=== PATIENT | female | born 1995 | race Caucasian/White ===

== ENCOUNTER → 2018-08-18 | Outpatient (CLI) | payer OTHER ==
--- NOTE | 2018-08-18 15:24 | US ---
EXAMINATION TYPE: Transabdominal DATE OF EXAM: 11/16/17 COMPARISON: NONE CLINICAL HISTORY: Z36 Confirm dates. CRAMPING IN EARLY OB EXAM PERFORMED: OBTA EXAM MEASUREMENTS: GESTATIONAL AGE / DATING Physician Established: Not yet established Dates by LMP: (8 weeks/0 days) EDC: 03/30/2019 Dates by First Scan: No previous this is first scan Dates by Current Scan for: (8 weeks/0 days) EDC: 03/30/2019 MATERNAL ANATOMY Uterus: 8.9 x 7.2 x 5.5cm Right Ovary: 2.6 x 1.4 x 1.9cm Left Ovary: 2.3 x 1.3 x 1.5cm Post CDS / Adnexa: wnl Presence of free fluid: no Presence of corpus luteal cyst: not seen Presence of subchorionic bleed: no GESTATION / SURVEY CRL: 1.6cm (8 weeks/0 days) MSD: wnl Yolk Sac (normal less than 6mm): 0.3 Heart Rate: 158 bpm Rhythm: Normal IUP: Live IUP Date of LMP: 06/23/2019 IMPRESSION: Single live intrauterine with a sonographic age of 8 weeks and 0 days, concordant with mens trual age. No complicating process is seen on today's examination.
[2018-08-18 16:20] LABS: Glucose 82 mg/dL (74-99)
[2018-08-18 16:23] LABS: HCT 38.5 % (34.0-46.0); HGB 12.7 gm/dL (11.4-16.0); MCH 29.9 pg (25.0-35.0); MCHC 33.1 g/dL (31.0-37.0); MCV 90.4 fL (80.0-100.0); Mean Platelet Volume 6.2; Platelet Count 345 k/uL (150-450); RBC 4.26 m/uL (3.80-5.40); RDW 12.8 % (11.5-15.5); WBC 14.5 k/uL (3.8-10.6)
[2018-08-19 05:00] LABS: HIV 1 AB Non-Reactive (Non-Reactive); HIV AB P24 Non-Reactive (Non-Reactive); HIV P24 AG Non-Reactive (Non-Reactive)
[2018-08-19 10:10] LABS: Toxoplasma Antibody (IgG) <3.0 IU/mL (<7.2); Toxoplasma Antibody (IgM) <3.0 AU/mL (<8.0)
== END ==
LOC: RADUSWWP 14:40
PROVIDERS: ATTEND Obstetrics & Gynecology
DX: Z36.89 Encounter for other specified antenatal screening (principal); Z34.81 Encounter for supervision of other normal pregnancy, first trimester; Z3A.08 8 weeks gestation of pregnancy
CPT/HCPCS: 36415; 76801; 82565; 82947; 85027; 86762; 86777; 86778; 86780; 86850; 86900; 86901; 87340; 87390

== ENCOUNTER 2018-09-13 09:44 | Emergency (ER) | payer OTHER ==
[2018-09-13 09:52] VITALS: RESP 18; TEMP 98.2
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
[2018-09-13 12:22] VITALS: BP 112/78; PULSE 97
[2018-09-14 14:30] LABS: C. trachomatis,PCR Negative (Neg,Equiv); Chlamydia trachomatis Source Vagina
[2018-09-14 14:35] LABS: N. gonorrhoeae,PCR Negative (Neg,Equiv); Neisseria Source Vagina
== END 2018-09-13 12:22 | disposition home or self-care (01) ==
LOC: EC 09:44
DX: O99.89 Other specified diseases and conditions complicating pregnancy, childbirth and the puerperium (principal); R10.9 Unspecified abdominal pain; O99.331 Smoking (tobacco) complicating pregnancy, first trimester; F17.200 Nicotine dependence, unspecified, uncomplicated; Z3A.11 11 weeks gestation of pregnancy; Z88.0 Allergy status to penicillin; Z91.040 Latex allergy status; W50.0XXA Accidental hit or strike by another person, initial encounter
CPT/HCPCS: 76801; 76813; 87070; 87205; 87491; 87591; 87808; 99284

== ENCOUNTER 2018-09-22 04:42 | Emergency (ER) | payer OTHER ==
[2018-09-22] MEDS ORDERED: SODIUM CHLORIDE 0.9% 1,000 ML IV STA (04:54)
[2018-09-22] MEDS ORDERED: Rhogam IMMUNE GLOBULIN 1,500 UNIT/1 ML IM ONE (05:11)
[2018-09-22 05:43] LABS: Basophils % (A) 0 %; Eosinophils # (A) 0.1 k/uL (0-0.7); Eosinophils % (A) 0 %; HCT 35.7 % (34.0-46.0); HGB 12.2 gm/dL (11.4-16.0); Lymphocytes # (A) 1.9 k/uL (1.0-4.8); Lymphocytes % (A) 9 %; MCH 30.5 pg (25.0-35.0); MCV 89.7 fL (80.0-100.0); Mean Platelet Volume 5.7; Monocytes # (A) 0.8 k/uL (0-1.0); Monocytes % (A) 4 %; Neutrophils # (A) 17.7 k/uL (1.3-7.7); Neutrophils % (A) 86 %; Platelet Count 334 k/uL (150-450); RBC 3.99 m/uL (3.80-5.40); RDW 12.9 % (11.5-15.5); WBC 20.7 k/uL (3.8-10.6)
[2018-09-22 05:46] LABS: Appearance,Urine Cloudy (Clear); Bacteria,Urine Occasional /hpf; Bilirubin,Urine Negative (Negative); Blood,Urine Large (Negative); Color,Urine Yellow; Glucose,Urine (UA) Negative (Negative); Ketones,Urine Negative (Negative); Leukocyte Esterase,Urine Large (Negative); Mucus,Urine Many /hpf; Nitrite,Urine Negative (Negative); PH, Urine 6.5 (5.0-8.0); Protein,Urine 1+ (Negative); RBC,Urine 70 /hpf (0-5); Specific Gravity,Urine 1.021 (1.001-1.035); Squamous Epithelial Cell,Urine 10 /hpf (0-4); Urobilinogen,Urine <2.0 mg/dL (<2.0); WBC,Urine 70 /hpf (0-5)
[2018-09-22] MEDS ORDERED: NITROFURANTOIN MONOHYD/M-CRYST 100 MG CAP PO STA (05:59)
[2018-09-22 06:01] LABS: ALT 15 U/L (9-52); AST 19 U/L (14-36); Albumin 3.8 g/dL (3.5-5.0); Alkaline Phosphatase 47 U/L (38-126); Anion Gap 8 mmol/L; Blood Urea Nitrogen 9 mg/dL (7-17); Calcium 9.2 mg/dL (8.4-10.2); Carbon Dioxide 23 mmol/L (22-30); Chloride 108 mmol/L (98-107); Glucose 98 mg/dL (74-99); Potassium 3.9 mmol/L (3.5-5.1); Sodium 139 mmol/L (137-145); Total Bilirubin 0.8 mg/dL (0.2-1.3); Total Protein 6.4 g/dL (6.3-8.2)
--- NOTE | 2018-09-22 06:06 | ED ---
Abdominal Pain HPI - General Chief Complaint: Abdominal Pain Stated Complaint: abd pain, 12 weeks preg Time Seen by Provider: 09/22/18 04:50 Source: patient Mode of arrival: ambulatory Limitations: no limitations - History of Present Illness Initial Comments: Carline is a 22 yo female currently 12w6d with a single intrauterine confirmed at with US who presents to the ED today for evaluation of pelvic discomfort and vaginal bleeding. Patient had a fall last week and was evaluated in the ER at that time, she reports she had been doing well since then. She woke this morning with abdominal cramping, she thought she needed to have a BM so she went to the restroom. She was able to have a BM but noted she passed a blood clot and had blood upon wiping which prompted her to come to the ER for further evaluation. patient is scheduled to see Dr. Ramirez next week. Patient is noted to be trichomonas positive on 09/13 - Related Data Previous Rx's Medication Instructions Recorded Nitrofurantoin Monohyd/M-Cryst 100 mg PO Q12HR #10 cap 09/22/18 [Macrobid] Allergies Allergy/AdvReac Type Severity Reaction Status Date / Time latex Allergy Rash/Hives Verified 09/22/18 06:42 Penicillins Allergy Dyspnea Verified 09/22/18 06:42 Review of Systems ROS Statement: Those systems with pertinent positive or pertinent negative responses have been documented in the HPI. ROS Other: All systems not noted in ROS Statement are negative. Past Medical History Additional Past Medical History / Comment(s): Patient has a history of gastritis. History of Any Multi-Drug Resistant Organisms: None Reported Past Surgical History: No Surgical Hx Reported Past Anesthesia/Blood Transfusion Reactions: No Reported Reaction Past Psychological History: Depression Smoking Status: Current every day smoker Past Alcohol Use History: None Reported Past Drug Use History: None Reported General Exam Limitations: no limitations Course Vital Signs 09/22/18 09/22/18 04:44 09:20 Temperature 98.5 F 97.8 F Pulse Rate 115 H 89 Respiratory 20 18 Rate Blood Pressure 117/79 107/59 O2 Sat by Pulse 98 99 Oximetry Medical Decision Making - Medical Decision Making Patient was seen and evaluated history was obtained from patient 22-year-old female 12 weeks 5 days presenting with vaginal bleeding Bedside ultrasound reveals a viable fetus with a heart rate in the 160s Let of the pelvis Labs and imaging were ordered Labs reveal leukocytosis, urinalysis is concerning for urinary tract infection review of labs reveal patient was Trichomonas positive last week Patient care was discussed with Dr. Awad who states he does not treat Trichomonas in the first trimester, patient is scheduled to see Dr. Ramirez on Wednesday of next week at which time she will be greater than 13 weeks gestation and can be treated as well as her partner. This was discussed with the patient and the partner who are agreeable. Patient will be treated for her urinary tract infection and plan to follow up with OB outpatient. Patient ambulated independently the restroom and upon return return to the room she states that she passed a dime-sized blood clot is having cramping. I will order a formal ultrasound for evaluation. A sign patient care is signed out to Dr. Bui, at shift change patient is pending ultrasound. - Lab Data Result diagrams: 09/22/18 05:00 09/22/18 05:00 Lab Results 09/22/18 09/22/18 09/22/18 Range/Units 05:00 05:00 05:00 WBC 20.7 H (3.8-10.6) k/uL RBC 3.99 (3.80-5.40) m/uL Hgb 12.2 (11.4-16.0) gm/dL Hct 35.7 (34.0-46.0) % MCV 89.7 (80.0-100.0) fL MCH 30.5 (25.0-35.0) pg MCHC 34.0 (31.0-37.0) g/dL RDW 12.9 (11.5-15.5) % Plt Count 334 (150-450) k/uL Neutrophils % 86 % Lymphocytes % 9 % Monocytes % 4 % Eosinophils % 0 % Basophils % 0 % Neutrophils # 17.7 H (1.3-7.7) k/uL Lymphocytes # 1.9 (1.0-4.8) k/uL Monocytes # 0.8 (0-1.0) k/uL Eosinophils # 0.1 (0-0.7) k/uL Basophils # 0.0 (0-0.2) k/uL Sodium 139 (137-145) mmol/L Potassium 3.9 (3.5-5.1) mmol/L Chloride 108 H (98-107) mmol/L Carbon Dioxide 23 (22-30) mmol/L Anion Gap 8 mmol/L BUN 9 (7-17) mg/dL Creatinine 0.45 L (0.52-1.04) mg/dL Est GFR (CKD-EPI)AfAm >90 (>60 ml/min/1.73 sqM) Est GFR (CKD-EPI)NonAf >90 (>60 ml/min/1.73 sqM) Glucose 98 (74-99) mg/dL Calcium 9.2 (8.4-10.2) mg/dL Total Bilirubin 0.8 (0.2-1.3) mg/dL AST 19 (14-36) U/L ALT 15 (9-52) U/L Alkaline Phosphatase 47 (38-126) U/L Total Protein 6.4 (6.3-8.2) g/dL Albumin 3.8 (3.5-5.0) g/dL HCG, Quant 60712.7 mIU/mL Urine Color Urine Appearance (Clear) Urine pH (5.0-8.0) Ur Specific [place] (1.001-1.035) Urine Protein (Negative) Urine Glucose (UA) (Negative) Urine Ketones (Negative) Urine Blood (Negative) Urine Nitrite (Negative) Urine Bilirubin (Negative) Urine Urobilinogen (<2.0) mg/dL Ur Leukocyte Esterase (Negative) Urine RBC (0-5) /hpf Urine WBC (0-5) /hpf Ur Squamous Epith Cells (0-4) /hpf Urine Bacteria (None) /hpf Urine Mucus (None) /hpf Blood Type O Negative Blood Type Recheck No 09/22/18 Range/Units 05:00 WBC (3.8-10.6) k/uL RBC (3.80-5.40) m/uL Hgb (11.4-16.0) gm/dL Hct (34.0-46.0) % MCV (80.0-100.0) fL MCH (25.0-35.0) pg MCHC (31.0-37.0) g/dL RDW (11.5-15.5) % Plt Count (150-450) k/uL Neutrophils % % Lymphocytes % % Monocytes % % Eosinophils % % Basophils % % Neutrophils # (1.3-7.7) k/uL Lymphocytes # (1.0-4.8) k/uL Monocytes # (0-1.0) k/uL Eosinophils # (0-0.7) k/uL Basophils # (0-0.2) k/uL Sodium (137-145) mmol/L Potassium (3.5-5.1) mmol/L Chloride (98-107) mmol/L Carbon Dioxide (22-30) mmol/L Anion Gap mmol/L BUN (7-17) mg/dL Creatinine (0.52-1.04) mg/dL Est GFR (CKD-EPI)AfAm (>60 ml/min/1.73 sqM) Est GFR (CKD-EPI)NonAf (>60 ml/min/1.73 sqM) Glucose (74-99) mg/dL Calcium (8.4-10.2) mg/dL Total Bilirubin (0.2-1.3) mg/dL AST (14-36) U/L ALT (9-52) U/L Alkaline Phosphatase (38-126) U/L Total Protein (6.3-8.2) g/dL Albumin (3.5-5.0) g/dL HCG, Quant mIU/mL Urine Color Yellow Urine Appearance Cloudy H (Clear) Urine pH 6.5 (5.0-8.0) Ur Specific [place] 1.021 (1.001-1.035) Urine Protein 1+ H (Negative) Urine Glucose (UA) Negative (Negative) Urine Ketones Negative (Negative) Urine Blood Large H (Negative) Urine Nitrite Negative (Negative) Urine Bilirubin Negative (Negative) Urine Urobilinogen <2.0 (<2.0) mg/dL Ur Leukocyte Esterase Large H (Negative) Urine RBC 70 H (0-5) /hpf Urine WBC 70 H (0-5) /hpf Ur Squamous Epith Cells 10 H (0-4) /hpf Urine Bacteria Occasional H (None) /hpf Urine Mucus Many H (None) /hpf Blood Type Blood Type Recheck Disposition Clinical Impression: UTI (urinary tract infection) in in first trimester, infection, trichomonal, Vaginal bleeding before 22 weeks gestation Disposition: HOME SELF-CARE Condition: Stable Prescriptions: Nitrofurantoin Monohyd/M-Cryst [Macrobid] 100 mg PO Q12HR #10 cap Is patient prescribed a controlled substance at d/c from ED?: No Referrals: Angeli Poole MD [Primary Care Provider] - 1-2 days
[2018-09-22 06:43] LABS: HCG,Quantitative Serum 50883.7 mIU/mL
--- NOTE | 2018-09-22 07:27 | US ---
EXAMINATION TYPE: Transabdominal DATE OF EXAM: 11/16/17 COMPARISON: US 09/13/2018 CLINICAL HISTORY: vaginal bleeding. Spotting, cramping EXAM PERFORMED: Transabdominal (TA) EXAM MEASUREMENTS: GESTATIONAL AGE / DATING Physician Established: (13 weeks/0 days) EDC: 03/30/2019 Dates by LMP: (13 weeks/0 days) EDC: 03/30/2019 Dates by First Scan: 13 weeks/0 days) EDC: 03/30/2019 Dates by Current Scan for: 13 weeks/0 days) EDC: 03/30/2019 MATERNAL ANATOMY Uterus: 11.4 x 9.0 x 8.9 cm Right Ovary: 2.9 x 1.6 x 2.3 cm Left Ovary: 3.5 x 2.5 x 2.2 cm Post CDS / Adnexa: wnl Presence of free fluid: No Presence of corpus luteal cyst: No Presence of subchorionic bleed: No GESTATION / SURVEY CRL: 6.73 cm (13 weeks/0 days) Heart Rate: 165 bpm Rhythm: Normal IUP: Viable IUP Date of LMP: 06/23/2018 Beta HcG (if available): 50,883.7 IMPRESSION: Viable IUP, measurements consistent with dates.
[2018-09-22 09:21] VITALS: BP 107/59; PULSE 89; RESP 18; TEMP 97.8
--- NOTE | 2018-09-23 03:48 | CDI ---
Dear Norma Palomares DO: Please do addendum Physical Examination. Thank you, Juan Saleh, Ocularist. If you have any questions, please contact Application Integration Engineer at [phone]. [facility]
== END 2018-09-22 09:30 | disposition home or self-care (01) ==
LOC: EC 04:42
DX: O23.41 Unspecified infection of urinary tract in pregnancy, first trimester (principal); O98.311 Other infections with a predominantly sexual mode of transmission complicating pregnancy, first trimester; A59.9 Trichomoniasis, unspecified; O20.9 Hemorrhage in early pregnancy, unspecified; O99.111 Other diseases of the blood and blood-forming organs and certain disorders involving the immune mechanism complicating pregnancy, first trimester; D72.829 Elevated white blood cell count, unspecified; O99.331 Smoking (tobacco) complicating pregnancy, first trimester; F17.200 Nicotine dependence, unspecified, uncomplicated; Z88.0 Allergy status to penicillin; Z91.040 Latex allergy status; Z91.81 History of falling; Z53.8 Procedure and treatment not carried out for other reasons; Z3A.12 12 weeks gestation of pregnancy
CPT/HCPCS: 36415; 86900; 86901; 80053; 85025; 81001; 84702; 87086; 76801; 99284; 96372; J2791

== ENCOUNTER → 2018-11-02 | Outpatient (CLI) | payer OTHER | END | disposition home or self-care (01) | LOC: LABWHC1 14:33 | PROVIDERS: ATTEND Obstetrics & Gynecology | DX: O03.9 Complete or unspecified spontaneous abortion without complication (principal) | CPT/HCPCS: 36415; 84702 ==

== ENCOUNTER → 2020-03-18 | Outpatient (CLI) | payer OTHER ==
--- NOTE | 2020-03-18 17:32 | P.STRESS ---
- Stress Test Note Stress Test Results/Findings: Exam Performed: EH stress test Exam Date: 03/18/20 Reason for Exam: CHEST PRESSURE Height: 5 ft 2 in Weight: 43 kg Protocol: EXERCISE TOLERANCE TEST Stage: 5 Duration of Exercise: 12:30 Resting Heart Rate: 77 Resting Blood Pressure: 123/78 Maximum Achieved Heart Rate: 172 Maximum Achieved Blood Pressure: 136/70 85% PMHR: 167 100% PMHR: 196 METS: 12.9 Technologist Comment: Stress Test Results/Findings: Baseline heart rate 77 beats a minute, Baseline blood pressure 123/78 mmHg Baseline twelve-lead ECG shows sinus rhythm with normal cardiac intervals normal ST segment Patient exercised on a Ritchie protocol for 12 minutes 30 seconds during the peak heart rate of 154 beats a minute normal blood pressure response to excise there was no ECG ms for ischemia no arrhythmias are noted Baseline artifact noted at peak exercise but early in recovery there were no ECG abnormalities Impression Excellent exercise capacity Patient did complain of chest pressure during the procedure No ECG abnormalities noted at that time
--- NOTE | 2020-03-19 11:59 | EST ---
Stress Test Results/Findings: Exam Performed: stress test Exam Date: 03/18/20 Reason for Exam: CHEST PRESSURE Height: 5 ft 2 in Weight: 43 kg Protocol: EXERCISE TOLERANCE TEST Stage: 5 Duration of Exercise: 12:30 Resting Heart Rate: 77 Resting Blood Pressure: 123/78 Maximum Achieved Heart Rate: 172 Maximum Achieved Blood Pressure: 136/70 85% PMHR: 167 100% PMHR: 196 METS: 12.9 Technologist Comment: Stress Test Results/Findings: Baseline heart rate 77 beats a minute, Baseline blood pressure 123/78 mmHg Baseline twelve-lead ECG shows sinus rhythm with normal cardiac intervals normal ST segment Patient exercised on a Ritchie protocol for 12 minutes 30 seconds during the peak heart rate of 154 beats a minute normal blood pressure response to excise there was no ECG ms for ischemia no arrhythmias are noted Baseline artifact noted at peak exercise but early in recovery there were no ECG abnormalities Impression Excellent exercise capacity Patient did complain of chest pressure during the procedure No ECG abnormalities noted at that time HIEU
== END | disposition home or self-care (01) ==
LOC: RADNMMAIN 10:19
PROVIDERS: ATTEND Family Medicine
DX: R07.89 Other chest pain (principal); R06.89 Other abnormalities of breathing; Z88.0 Allergy status to penicillin
CPT/HCPCS: 93017

== ENCOUNTER 2020-09-14 16:46 | Emergency (ER) | payer OTHER ==
[2020-09-14 16:57] VITALS: BP 124/83; PULSE 107; RESP 16; TEMP 98.4
[2020-09-14 17:31] LABS: Basophils # (A) 0.1 k/uL (0-0.2); Basophils % (A) 1 %; Eosinophils # (A) 0.1 k/uL (0-0.7); Eosinophils % (A) 1 %; HCT 41.4 % (34.0-46.0); HGB 14.3 gm/dL (11.4-16.0); Lymphocytes # (A) 2.2 k/uL (1.0-4.8); Lymphocytes % (A) 22 %; MCH 31.3 pg (25.0-35.0); MCHC 34.6 g/dL (31.0-37.0); MCV 90.5 fL (80.0-100.0); Mean Platelet Volume 6.3; Monocytes # (A) 0.6 k/uL (0-1.0); Monocytes % (A) 6 %; Neutrophils # (A) 6.8 k/uL (1.3-7.7); Neutrophils % (A) 68 %; Platelet Count 353 k/uL (150-450); RBC 4.58 m/uL (3.80-5.40); RDW 12.5 % (11.5-15.5)
[2020-09-14 17:36] LABS: Appearance,Urine Clear (Clear); Bilirubin,Urine Negative (Negative); Blood,Urine Negative (Negative); Color,Urine Yellow; Glucose,Urine (UA) Negative (Negative); Ketones,Urine Negative (Negative); Leukocyte Esterase,Urine Negative (Negative); Nitrite,Urine Negative (Negative); Protein,Urine Negative (Negative); Specific Gravity,Urine 1.025 (1.001-1.035); Urobilinogen,Urine <2.0 mg/dL (<2.0)
[2020-09-14 17:47] LABS: ALT 14 U/L (4-34); AST 21 U/L (14-36); African American GFR (CKD) >90 (>60 ml/min/1.73 sqM); Albumin 4.8 g/dL (3.5-5.0); Alkaline Phosphatase 45 U/L (38-126); Anion Gap 12 mmol/L; Blood Urea Nitrogen 10 mg/dL (7-17); Calcium 9.4 mg/dL (8.4-10.2); Carbon Dioxide 22 mmol/L (22-30); Chloride 105 mmol/L (98-107); Glucose 104 mg/dL (74-99); Non-African American GFR(CKD) >90 (>60 ml/min/1.73 sqM); Potassium 3.8 mmol/L (3.5-5.1); Sodium 139 mmol/L (137-145); Total Bilirubin 0.5 mg/dL (0.2-1.3); Total Protein 7.8 g/dL (6.3-8.2)
--- NOTE | 2020-09-14 17:58 | US ---
EXAMINATION TYPE: Transabdominal DATE OF EXAM: 09/14/2020 5:44 PM COMPARISON: NONE CLINICAL HISTORY: vaginal bleeding in . cramping and bleeding today, A1 EXAM PERFORMED: OBTA EXAM MEASUREMENTS: GESTATIONAL AGE / DATING Physician Established: Not yet established Dates by LMP: (5 weeks/0 days) EDC: 05/17/2021 Dates by First Scan: No previous this is first scan Dates by Current Scan for: (5 weeks/1 days) EDC: 05/16/2021 MATERNAL ANATOMY Uterus: 8.1 x 4.9 x 5.0cm Right Ovary: 1.8 x 1.9 x 10.4cm Left Ovary: 2.6 x 2.1 x 1.7cm Post CDS / Adnexa: wnl Presence of free fluid: no Presence of corpus luteal cyst: not seen Presence of subchorionic bleed: 1.7cm GESTATION / SURVEY MSD: 1.6cm (5 weeks/1 days) Date of LMP: 08/10/2020 Beta HcG (if available): pending IMPRESSION: Small intrauterine gestational sac. Follow-up exam recommended in 14 days to confirm a living fetus. Small complex adjacent fluid consistent with subchorionic hemorrhage.
[2020-09-14 18:02] LABS: HCG,Quantitative Serum 4454.3 mIU/mL
[2020-09-14] MEDS ORDERED: Rhogam IMMUNE GLOBULIN 1,500 UNIT/1 ML IM ONE (18:08)
--- NOTE | 2020-09-14 18:11 | ED ---
Female Urogenital HPI - General Chief complaint: Vaginal Bleeding Stated complaint: 6 weeks preg/Bleeding Time Seen by Provider: 09/14/20 16:55 Source: patient Mode of arrival: ambulatory Limitations: no limitations - History of Present Illness Initial comments: 24-year-old feel presenting today for vaginal bleeding and . Patient states her left resection he noticed bleeding. She states it was crusher tender than a period. Patient denies any nausea vomiting lightheadedness palpitations syncope. Patient denies any vaginal lacerations noted or extremely heavy bleeding. Patient states it seemed to stop on upon arrival. She states she does have established [facility]EARCH MANAGER care and is to see Dr. Ramirez in the next 3 weeks. pt denies urinary symptoms, pain/cramping, fevers. Patient appears well nontoxic in no acute distress. - Related Data Previous Rx's Medication Instructions Recorded Nitrofurantoin Monohyd/M-Cryst 100 mg PO Q12HR #10 cap 09/22/18 [Macrobid] Allergies Allergy/AdvReac Type Severity Reaction Status Date / Time latex Allergy Rash/Hives Verified 09/14/20 16:57 Penicillins Allergy Dyspnea Verified 09/14/20 16:57 Review of Systems ROS Statement: Those systems with pertinent positive or pertinent negative responses have been documented in the HPI. ROS Other: All systems not noted in ROS Statement are negative. Past Medical History Additional Past Medical History / Comment(s): Patient has a history of gastritis. History of Any Multi-Drug Resistant Organisms: None Reported Past Surgical History: No Surgical Hx Reported Past Anesthesia/Blood Transfusion Reactions: No Reported Reaction Past Psychological History: Depression Smoking Status: Current every day smoker Past Alcohol Use History: None Reported Past Drug Use History: None Reported General Exam - General Exam Comments Initial Comments: General: The patient is awake and alert, in no distress, and does not appear acutely ill. Eye: Pupils are equal, round and reactive to light, extra-ocular movements are intact. No nystagmus. There is normal conjunctiva bilaterally. No signs of icterus. Cardiovascular: There is a regular rate and rhythm. No murmur, rub or gallop is appreciated. Respiratory: Lungs are clear to auscultation, respirations are non-labored, breath sounds are equal. No wheezes, stridor, rales, or rhonchi. Gastrointestinal: Soft, non-distended, non-tender abdomen without masses or organomegaly noted. There is no rebound or guarding present. : Dark red blood in vault, no clots. os appears closed. no adnexal tenderness. Musculoskeletal: Normal ROM, no tenderness. Strength 5/5. Sensation intact. Pulses equal bilaterally 2+. Neurological: A&O x 3. CN II-XII intact grossly, There are no obvious motor or sensory deficits. Coordination appears grossly intact. Speech is normal. Skin: Skin is warm and dry and no rashes or lesions are noted. Psychiatric: Cooperative, appropriate mood & affect, normal judgment. Limitations: no limitations Course Vital Signs 09/14/20 16:54 Temperature 98.4 F Pulse Rate 107 H Respiratory 16 Rate Blood Pressure 124/83 O2 Sat by Pulse 100 Oximetry Medical Decision Making - Medical Decision Making HgB stable. Pt appears well. bleeding minimal. US gestational sac as well as a noted subchorionic hemorrhageand HCG elevated. O-. gram given. Patient is not exactly stable at this point I feel she is stable for discharge with repeat hCG in 48 hours which was provided and follow-up with her AGRONOMY RESEARCH MANAGER Dr. Ramirez this week. Patietn agreeable awaare of return for heavy bleeding ,light headedness/presyncope/syncope or pain/other concerning symptoms. pt discharged appearing well. Dr Guerrero agreeable to care plan. - Lab Data Result diagrams: 09/14/20 17:14 09/14/20 17:14 Lab Results 09/14/20 09/14/20 09/14/20 Range/Units 17:14 17:14 17:14 WBC 10.0 (3.8-10.6) k/uL RBC 4.58 (3.80-5.40) m/uL Hgb 14.3 (11.4-16.0) gm/dL Hct 41.4 (34.0-46.0) % MCV 90.5 (80.0-100.0) fL MCH 31.3 (25.0-35.0) pg MCHC 34.6 (31.0-37.0) g/dL RDW 12.5 (11.5-15.5) % Plt Count 353 (150-450) k/uL MPV 6.3 Neutrophils % 68 % Lymphocytes % 22 % Monocytes % 6 % Eosinophils % 1 % Basophils % 1 % Neutrophils # 6.8 (1.3-7.7) k/uL Lymphocytes # 2.2 (1.0-4.8) k/uL Monocytes # 0.6 (0-1.0) k/uL Eosinophils # 0.1 (0-0.7) k/uL Basophils # 0.1 (0-0.2) k/uL Sodium 139 (137-145) mmol/L Potassium 3.8 (3.5-5.1) mmol/L Chloride 105 (98-107) mmol/L Carbon Dioxide 22 (22-30) mmol/L Anion Gap 12 mmol/L BUN 10 (7-17) mg/dL Creatinine 0.58 (0.52-1.04) mg/dL Est GFR (CKD-EPI)AfAm >90 (>60 ml/min/1.73 sqM) Est GFR (CKD-EPI)NonAf >90 (>60 ml/min/1.73 sqM) Glucose 104 H (74-99) mg/dL Calcium 9.4 (8.4-10.2) mg/dL Total Bilirubin 0.5 (0.2-1.3) mg/dL AST 21 (14-36) U/L ALT 14 (4-34) U/L Alkaline Phosphatase 45 (38-126) U/L Total Protein 7.8 (6.3-8.2) g/dL Albumin 4.8 (3.5-5.0) g/dL HCG, Quant 4454.3 mIU/mL Urine Color Urine Appearance (Clear) Urine pH (5.0-8.0) Ur Specific [place] (1.001-1.035) Urine Protein (Negative) Urine Glucose (UA) (Negative) Urine Ketones (Negative) Urine Blood (Negative) Urine Nitrite (Negative) Urine Bilirubin (Negative) Urine Urobilinogen (<2.0) mg/dL Ur Leukocyte Esterase (Negative) Urine HCG, Qual (Not Detectd) Trichomonas Ag (Rapid) (Negative) Blood Type O Negative Blood Type Recheck O Neg Bld Type Recheck Status No Antibody Screen NEGATIVE 09/14/20 09/14/20 09/14/20 Range/Units 17:21 17:21 17:21 WBC (3.8-10.6) k/uL RBC (3.80-5.40) m/uL Hgb (11.4-16.0) gm/dL Hct (34.0-46.0) % MCV (80.0-100.0) fL MCH (25.0-35.0) pg MCHC (31.0-37.0) g/dL RDW (11.5-15.5) % Plt Count (150-450) k/uL MPV Neutrophils % % Lymphocytes % % Monocytes % % Eosinophils % % Basophils % % Neutrophils # (1.3-7.7) k/uL Lymphocytes # (1.0-4.8) k/uL Monocytes # (0-1.0) k/uL Eosinophils # (0-0.7) k/uL Basophils # (0-0.2) k/uL Sodium (137-145) mmol/L Potassium (3.5-5.1) mmol/L Chloride (98-107) mmol/L Carbon Dioxide (22-30) mmol/L Anion Gap mmol/L BUN (7-17) mg/dL Creatinine (0.52-1.04) mg/dL Est GFR (CKD-EPI)AfAm (>60 ml/min/1.73 sqM) Est GFR (CKD-EPI)NonAf (>60 ml/min/1.73 sqM) Glucose (74-99) mg/dL Calcium (8.4-10.2) mg/dL Total Bilirubin (0.2-1.3) mg/dL AST (14-36) U/L ALT (4-34) U/L Alkaline Phosphatase (38-126) U/L Total Protein (6.3-8.2) g/dL Albumin (3.5-5.0) g/dL HCG, Quant mIU/mL Urine Color Yellow Urine Appearance Clear (Clear) Urine pH 6.0 (5.0-8.0) Ur Specific [place] 1.025 (1.001-1.035) Urine Protein Negative (Negative) Urine Glucose (UA) Negative (Negative) Urine Ketones Negative (Negative) Urine Blood Negative (Negative) Urine Nitrite Negative (Negative) Urine Bilirubin Negative (Negative) Urine Urobilinogen <2.0 (<2.0) mg/dL Ur Leukocyte Esterase Negative (Negative) Urine HCG, Qual Detected (Not Detectd) Trichomonas Ag (Rapid) Negative (Negative) Blood Type Blood Type Recheck Bld Type Recheck Status Antibody Screen Disposition Clinical Impression: Threatened , Vaginal bleeding affecting early , Subchorionic hematoma in first trimester Disposition: HOME SELF-CARE Condition: Good Instructions (If sedation given, give patient instructions): Threatened Miscarriage (ED), Subchorionic Hemorrhage (ED) Additional Instructions: Please use medication as discussed. Please follow-up with family doctor in the next 2 days & OBGYN in next week. Please return to emergency room if the symptoms increase or worsen or for any other concerns. Is patient prescribed a controlled substance at d/c from ED?: No Referrals: Samm Avila MD [Primary Care Provider] - 1-2 days Yoan Ramirez MD [Family Provider] - 1-2 days Time of Disposition: 18:11
== END 2020-09-14 19:20 | disposition home or self-care (01) ==
LOC: EC 16:46
DX: O20.0 Threatened abortion (principal); F17.200 Nicotine dependence, unspecified, uncomplicated; Z91.040 Latex allergy status; Z88.0 Allergy status to penicillin; Z3A.00 Weeks of gestation of pregnancy not specified
CPT/HCPCS: 36415; 86900; 86901; 80053; 85025; 86850; 81003; 81025; 84702; 87808; 87491; 87591; 87070; 76801; 99284; 96372; J2791

== ENCOUNTER → 2020-09-16 | Outpatient (CLI) | payer OTHER | END | disposition home or self-care (01) | LOC: LABWHC1 16:01 | PROVIDERS: ATTEND Physician Assistant Medical | DX: O20.0 Threatened abortion (principal) | CPT/HCPCS: 36415; 84702 ==

== ENCOUNTER → 2020-09-23 | Outpatient (CLI) | payer OTHER ==
--- NOTE | 2020-09-23 13:19 | US ---
EXAMINATION TYPE: Ultrasound OB <= 14 week fetus DATE OF EXAM: 09/23/2020 10:39 AM COMPARISON: US 2020 CLINICAL HISTORY: 24-year-old female Z36 Encounter for screening of mother. Confirm dates, recheck subchorionic bleed EXAM PERFORMED: Transabdominal (TA) FINDINGS: EXAM MEASUREMENTS: GESTATIONAL AGE / DATING Physician Established: Not established yet Dates by LMP: (6 weeks/2 days) EDC: 05/17/2021 Dates by First Scan: By gestational sac (6 weeks/3 days) EDC: 05/16/2021 Dates by Current Scan for: ( 6 weeks/3 days) EDC: 05/16/2021 MATERNAL ANATOMY Uterus: 9.0 x 4.9 x 5.9cm Right Ovary: 3.1 x 1.5 x 1.6cm Left Ovary: 2.3 x 1.5 x 2.0cm Post CDS / Adnexa: small amount of free fluid in posterior cul de sac Presence of free fluid: yes Presence of corpus luteal cyst: not seen Presence of subchorionic bleed: yes - anterior and fundal measuring 1.1 x 0.7 x 2.5cm (versus 1.7 x 1 .7 x 1.0 cm located inferiorly and towards the left, previously) GESTATION / SURVEY CRL: 0.6cm (6 weeks/3 days) Yolk Sac (normal less than 6mm): 2.9mm Heart Rate: 118 bpm Rhythm: Normal IUP: Viable IUP Date of LMP: 08/10/2020 IMPRESSION: 1. Single live intrauterine with estimated gestational age of 6 weeks 2 days by LMP. Curren t ultrasound biometry is concordant (6 weeks 3 days by MSD). 2. A moderate-sized perigestational bleed is redemonstrated currently measuring 2.5 x 1.1 x 0.7 cm bu t now seen anteriorly and fundally (versus 1.7 x 1.7 x 1.0 cm previously located inferiorly and towar ds the left). There may have been resolution of some of the prior hemorrhage with some new interval s ubchorionic bleeding. Continued follow-up recommended. 3. Otherwise, complete survey is recommended at 18-20 weeks.
== END | disposition home or self-care (01) ==
LOC: RADUSWWP 10:18
PROVIDERS: ATTEND Obstetrics & Gynecology
DX: O46.91 Antepartum hemorrhage, unspecified, first trimester (principal); Z3A.01 Less than 8 weeks gestation of pregnancy; Z91.040 Latex allergy status; Z88.0 Allergy status to penicillin
CPT/HCPCS: 76801

== ENCOUNTER → 2020-10-14 | Outpatient (CLI) | payer OTHER ==
--- NOTE | 2020-10-14 15:47 | US ---
EXAMINATION TYPE: Ultrasound OB <= 14 week fetus DATE OF EXAM: 10/14/2020 10:07 AM COMPARISON: 09/23/2020 CLINICAL HISTORY: 24-year-old female Z36 Confirm dates f/u from previous abnormal 09/23. EXAM PERFORMED: Transabdominal (TA) FINDINGS: EXAM MEASUREMENTS: GESTATIONAL AGE / DATING Physician Established: Not yet established Dates by LMP: (9 weeks/3 days) EDC: 05/16/2021 Dates by First Scan: (9 weeks/3 days) EDC: 05/16/2021 Dates by Current Scan: (9 weeks/1 days) EDC: 05/18/2021 (versus 05/16/2021 on 09/23/2020, 2 days less growth than expected) MATERNAL ANATOMY Uterus: 10.1 x 6.4 x 7.6 cm Right Ovary: 2.7 x 1.4 x 1.7 cm Left Ovary: Obscured by bowel gas Post CDS / Adnexa: wnl Presence of free fluid: no Presence of corpus luteal cyst: no Presence of subchorionic bleed: .8 x .4 x .9 cm smaller than previous (versus 2.5 x 1.1 x 0.7 cm, pre viously). GESTATION / SURVEY CRL: 2.4 cm (9 weeks/1 days) Yolk Sac (normal less than 6mm): 4 mm Heart Rate: 165 bpm Rhythm: Normal IUP: Viable IUP IMPRESSION: 1. Single live intrauterine with estimated gestational age of 9 weeks 3 days by LMP (as rep orted by the patient). 2. Current ultrasound biometry (9 weeks 1 day) is concordant, with 2 days less growth than expected a s compared to 09/23/2020. 3. The patient's perigestational bleed continues to decrease in size, currently measuring 9 x 8 mm (v ersus 2.5 x 1.1 cm, previously). 4. Additional follow-up as clinically indicated. Otherwise, complete survey recommended at 18-2 0 weeks. 5. Otherwise, complete survey recommended at 18-20 weeks.
== END ==
LOC: RADUSWWP 09:52
PROVIDERS: ATTEND Obstetrics & Gynecology
DX: O20.8 Other hemorrhage in early pregnancy (principal); Z3A.09 9 weeks gestation of pregnancy
CPT/HCPCS: 76801

== ENCOUNTER 2021-05-12 06:08 | Inpatient (IN) | payer OTHER ==
--- NOTE | 2021-05-11 12:28 | P.HPOB ---
History of Present Illness H&P Date: 05/11/21 Chief Complaint: Requested induction of labor This patient is a pleasant 25 yr female EDC 05/17/2021 estimated gestational age 39wk2d who presents for requested induction of labor. has been uncomplicated. Review of Systems Genitourinary: Reports Menstruation: Reports amenorrhea Past Medical History Past Medical History: No Reported History Additional Past Medical History / Comment(s): Patient has a history of gastritis. History of Any Multi-Drug Resistant Organisms: None Reported Past Surgical History: No Surgical Hx Reported Past Anesthesia/Blood Transfusion Reactions: No Reported Reaction Past Psychological History: Depression Smoking Status: Current every day smoker Past Alcohol Use History: None Reported Past Drug Use History: None Reported Medications and Allergies Home Medications Medication Instructions Recorded Confirmed Type Nitrofurantoin Monohyd/M-Cryst 100 mg PO Q12HR #10 cap 09/22/18 Rx [Macrobid] Allergies Allergy/AdvReac Type Severity Reaction Status Date / Time latex Allergy Rash/Hives Verified 09/14/20 16:57 Penicillins Allergy Dyspnea Verified 09/14/20 16:57 Exam - OBG Physical Exam Abdomen: bowel sounds normal, no diffuse tenderness, no bruit present, no guarding noted, no hepatomegaly, no splenomegaly, no mass Vulva: both: normal Vagina: normal moisture, no discharge Cervix: Cervix in the office was 2-3cm/50% effaced Cervix: no lesion, no discharge Results labs: O negative (received Rhogam on 03/10), Rubella Immune, RPR-HepB neg, Toxoplasmosis negative. GBS negative, Glucola 109. Ultrasounds have been normal. Assessment and Plan Assessment: This is a pleasant 25 yr female 39 2/7 weeks gestation requesting induction of labor. Plan is induction of labor and anticipate . (1) 39 weeks gestation of Status: Acute Code(s): Z3A.39 - 39 WEEKS GESTATION OF SNOMED Code(s): 26485177 (2) Elective induction of labor planned Status: Acute Code(s): OGT4442 - SNOMED Code(s): 407472076
[2021-05-12] MEDS ORDERED: LIDOCAINE 0.5% (PF) 5 MG/ML (50 ML SDV) SQ PRN (06:23)
[2021-05-12] MEDS ORDERED: OXYTOCIN 30 UNITS/500 ML NS 30 UNIT in SALINE 1 500ML.BAG IV SCH ×2 (06:23→13:15)
[2021-05-12] MEDS ORDERED: CARBOPROST TROMETHAMINE 250 MCG/ML 1 ML AMP IM PRN (06:23)
[2021-05-12] MEDS ORDERED: METHYLERGONOVINE 0.2 MG/ML 1 ML AMP IM PRN (06:23)
[2021-05-12] MEDS ORDERED: OXYTOCIN 10 UNIT/ML 1 ML VIAL IM PRN (06:23)
[2021-05-12] MEDS ORDERED: TERBUTALINE 1 MG/ML VIAL SQ PRN (06:23)
[2021-05-12] MEDS: LACTATED RINGERS 1,000 ML IV SCH ×2 (06:34→09:50)
[2021-05-12 06:54] LABS: Basophils # (A) 0.1 k/uL (0-0.2); Basophils % (A) 0 %; Eosinophils # (A) 0.1 k/uL (0-0.7); Eosinophils % (A) 1 %; HCT 33.9 % (34.0-46.0); HGB 11.9 gm/dL (11.4-16.0); Lymphocytes % (A) 19 %; MCH 31.2 pg (25.0-35.0); MCHC 34.9 g/dL (31.0-37.0); MCV 89.4 fL (80.0-100.0); Mean Platelet Volume 6.9; Monocytes # (A) 0.9 k/uL (0-1.0); Monocytes % (A) 6 %; Neutrophils # (A) 11.3 k/uL (1.3-7.7); Neutrophils % (A) 71 %; Platelet Count 429 k/uL (150-450); RDW 13.2 % (11.5-15.5); WBC 15.9 k/uL (3.8-10.6)
[2021-05-12 08:33] LABS: Amphetamine Screen,Urine Not Detected (NotDetected); Barbiturate Screen,Urine Not Detected (NotDetected); Benzodiazepines Screen,Urine Not Detected (NotDetected); Cocaine Screen,Urine Not Detected (NotDetected); Methadone Screen, Urine Not Detected (NotDetected); Opiate Screen,Urine Not Detected (NotDetected); Oxycodone Screen, Urine Not Detected (NotDetected); Phencyclidine Screen,Urine Not Detected (NotDetected); Tricyclic Antidepressant,Urine Not Detected (NotDetected); Urn Cannabinoid Scrn Detected (NotDetected)
[2021-05-12] MEDS ORDERED: ROPIVACAINE 5MG/ML 20ML VIAL ONE (09:36)
[2021-05-12] MEDS ORDERED: fentaNYL (PF) 50 MCG/ML 5 ML AMP ONE (09:36)
[2021-05-12] MEDS ORDERED: SODIUM CHLORIDE 0.9% 100 ML BAG ONE (09:36)
[2021-05-12] MEDS ORDERED: Rhogam IMMUNE GLOBULIN 1,500 UNIT/1 ML IM ONE (13:12)
[2021-05-12] MEDS ORDERED: ZOLPIDEM 5 MG TAB PO PRN (13:12)
[2021-05-12] MEDS ORDERED: SIMETHICONE 80 MG CHEWABLE PO PRN (13:12)
[2021-05-12] MEDS ORDERED: BENZOCAINE/MENTHOL SPRAY 1 GM/SPRAY AEROSOL TOPICAL PRN (13:12)
[2021-05-12] MEDS ORDERED: LANOLIN CREAM 5 GM TUBE TOPICAL PRN (13:12)
[2021-05-12] MEDS ORDERED: ACETAMINOPHEN TAB 325 MG TAB PO PRN (13:12)
[2021-05-12] MEDS ORDERED: diphenhydrAMINE 25 MG CAP PO PRN (13:12)
[2021-05-12] MEDS ORDERED: HYDROCORTISONE 2.5% RECTAL CREAM 30 GM TUBE RECTAL PRN (13:12)
[2021-05-12] MEDS ORDERED: bisacodyL 10 MG SUPP RECTAL PRN (13:12)
[2021-05-12] MEDS ORDERED: diphenhydrAMINE 50 MG/ML 1 ML VIAL IVP PRN (13:12)
[2021-05-12] MEDS: IBUPROFEN 600 MG TAB PO PRN (14:44)
--- NOTE | 2021-05-12 18:51 | P.PROBDLV ---
Vaginal Delivery Note - . Vaginal Delivery Note: Normal vaginal delivery viable male infant Apgars 9 and 9 delivery time is 1254 hrs. Please see dictated H&P for intimate details of this patient's admission. Brief summary this is a pleasant 25-year-old 4 para 1 female 39-2/7 weeks gestation admitted to labor and delivery for elective induction of labor. On admission patient is 3 cm dilated is artificial rupture membranes for clear fluid. Aber progresses quickly and she does get an epidural for pain control. Patient gets to complete pushes the head to the perineum. Posterior perineum is supported we have controlled delivery of the infant's head over the intact perineum. Mouth and nares are bulb suctioned. Infant's head is right occiput anterior. Is no evidence of a nuchal cord. With gentle downward traction we then have deliver the anterior posterior shoulder and rest this 's body. This is a vigorous viable male infant Apgars are 9 and 9 delivery time is 1254 hrs. After delivery of the infant is late on the mother's abdomen. Cord was allowed to quit pulsating. This time is doubly clamped and cut. The placenta is then spontaneously delivered intact. Inspection of the perineum shows a first-degree posterior laceration was repaired with 3-0 Vicryl usual fashion. Excellent reapproximation is noted. All counts are correct 3. There are no complications. and mother are stable delivery room.
[2021-05-12] MEDS: SENNOSIDES-DOCUSATE SODIUM 1 EACH TAB PO PRN (20:07)
[2021-05-13] MEDS: IBUPROFEN 600 MG TAB PO PRN ×2 (01:53→09:27)
--- NOTE | 2021-05-13 06:42 | P.PNOBGVD ---
Subjective - Subjective Patient reports: Reports appetite normal, Reports voiding normally, Reports pain well controlled, Reports ambulating normally : doing well Objective - Latest Vital Signs Latest vital signs: Vital Signs Temp Pulse Resp BP Pulse Ox 05/13/21 00:00 98.3 F 82 17 117/76 97 05/12/21 19:55 98.8 F 104 H 17 113/61 97 05/12/21 15:09 103 H 16 116/74 05/12/21 14:40 92 16 109/74 05/12/21 14:10 103 H 16 119/56 05/12/21 13:55 108 H 16 106/66 05/12/21 13:40 98.3 F 109 H 16 99/60 05/12/21 13:25 116 H 16 121/68 05/12/21 13:10 117 H 16 117/56 Intake and Output 05/12/21 05/12/21 05/13/21 14:59 22:59 06:59 Intake Total 173.417 819.833 Output Total 75 Balance 98.417 819.833 Intake: Intake, IV Titration 173.417 319.833 Amount Oxytocin 30 Units/500 ml 173.417 319.833 Ns 30 unit In Saline 1 500ml.bag @ Per Protocol IV .[facility]M [facility] Rx#:[id number] Oral 500 Output: Estimated Blood Loss 75 Other: # Voids 1 3 - Exam Lungs: bilateral: normal Chest: Normal S1, Normal S2 Extremities: Present: normal Abdomen: Present: normal appearance, soft Uterus: Present: normal, firm - Labs Labs: Abnormal Lab Results - Last 24 Hours (Table) 05/12/21 05/12/21 Range/Units 06:30 07:30 WBC 15.9 H (3.8-10.6) k/uL Hct 33.9 L (34.0-46.0) % Neutrophils # 11.3 H (1.3-7.7) k/uL U Marijuana (THC) Screen Detected H (NotDetected) Assessment and Plan Assessment: day #1. Patient is resting without complaints wishes to go home. Vital signs are stable she is afebrile. Uterus is firm nontender and she is having normal lochia. My impression this is a normal course. Plan is to continue routine care discharge home later today (1) 39 weeks gestation of Current Visit: No Status: Acute Code(s): Z3A.39 - 39 WEEKS GESTATION OF SNOMED Code(s): 38279790 (2) Elective induction of labor planned Current Visit: No Status: Acute Code(s): [id number] - SNOMED Code(s): 877507773
--- NOTE | 2021-05-13 06:46 | P.DS ---
Providers Date of admission: 05/12/21 06:08 Expected date of discharge: 05/13/21 Attending physician: Yoan Ramirez Primary care physician: Stated None - Discharge Diagnosis(es) (1) 39 weeks gestation of Current Visit: No Status: Acute (2) Elective induction of labor planned Current Visit: No Status: Acute Hospital Course: Please see dictated H&P for intimate details of this patient's admission. Brief summary this pleasant 25-year-old 4 para 1 female 39-2/7 weeks gestation admitted to labor and delivery for elective induction of labor. Patient quickly goes on to have a vaginal delivery viable male . Please see dictated delivery note. day 1 patient's felt stable for discharge home follow up with me in 6 weeks. Procedures: Induction of labor normal vaginal delivery. Plan - Discharge Summary New Discharge Prescriptions: New Ibuprofen [Motrin] 600 mg PO Q6HR PRN #30 tab PRN Reason: Pain No Action Pnv,Calcium 72/Iron/Folic Acid [ Plus Tablet] 1 tab PO DAILY Discharge Medication List Pnv,Calcium 72/Iron/Folic Acid [ Plus Tablet] 1 tab PO DAILY 05/12/21 [History] Ibuprofen [Motrin] 600 mg PO Q6HR PRN #30 tab 05/13/21 [Rx] Follow up Appointment(s)/Referral(s): Yoan Ramirez MD [STAFF PHYSICIAN] - 06/24/21 11:00 am Patient Instructions/Handouts: Vaginal Delivery (DC) Activity/Diet/Wound Care/Special Instructions: Brandon or anything per vagina for 6 weeks. Please call if any fever, chills, excessive vaginal bleeding, and/or abdominal pain. Discharge Disposition: HOME SELF-CARE
[2021-05-13 08:38] VITALS: BP 112/74; PULSE 78; RESP 14; TEMP 98.1
[2021-05-13] MEDS: SENNOSIDES-DOCUSATE SODIUM 1 EACH TAB PO PRN (09:26)
== END 2021-05-13 15:34 | disposition home or self-care (01) | DRG 807 ==
LOC: 4FBP 06:08
PROVIDERS: ADMIT Obstetrics & Gynecology; ATTEND Obstetrics & Gynecology
PROC: 10E0XZZ Delivery of Products of Conception, External Approach (ICD-10-PCS; principal; 2021-05-12)
PROC: 10907ZC Drainage of Amniotic Fluid, Therapeutic from Products of Conception, Via Natural or Artificial Opening (ICD-10-PCS; 2021-05-12)
PROC: 0HQ9XZZ Repair Perineum Skin, External Approach (ICD-10-PCS; 2021-05-12)
PROC: 3E033VJ Introduction of Other Hormone into Peripheral Vein, Percutaneous Approach (ICD-10-PCS; 2021-05-12)
DX: O99.334 Smoking (tobacco) complicating childbirth (principal); Z37.0 Single live birth; O99.344 Other mental disorders complicating childbirth; F32.9 Major depressive disorder, single episode, unspecified; F17.200 Nicotine dependence, unspecified, uncomplicated; Z3A.39 39 weeks gestation of pregnancy
CPT/HCPCS: 80306; 85025; 85461; 86850; 86870; 86880; 86900; 86901